=== PATIENT | female | born 2005 | race Caucasian/White ===

== ENCOUNTER 2025-03-02 06:36 | Outpatient (REF) | payer OTHER, SELFPAY ==
--- NOTE | ~2025-03-02 | US_ITS ---
EXAMINATION: US PELVIS CLINICAL INFORMATION: PELVIC PAIN X 8 MONTHS, PT HAS IUD. COMPARISON: None available. TECHNIQUE: Ultrasound of the pelvis is performed using transabdominal evaluation only, along with Doppler. Patient declined transvaginal examination today. FINDINGS: Uterus: Uterus anteverted and anteflexed. Measures 8.2 x 3.6 x 4.6 cm (volume of 70.8 ml). Homogeneous echotexture of the myometrium. Endometrial echo complex measures 0.3 cm. Intrauterine device appears properly positioned within the endometrial cavity. Ovaries/adnexa: Right ovary measures 3.3 x 1.8 x 2.3 cm (volume of 6.9 ml). Left ovary measures 2.8 x 1.0 x 1.7 cm (volume of 2.5 ml). Unremarkable sonographic appearance of the ovaries. No adnexal masses seen. Pelvis: No free fluid. US/US pelvic complete IMPRESSION: No concerning sonographic findings. Intrauterine device appears properly positioned within the endometrial cavity. Electronically signed by: Cristy Nava MD 03/02/2025 10:15 AM [facility]
== END 2025-03-02 06:37 | disposition home or self-care (01) ==
LOC: HO.UMASIMG 06:36
PROVIDERS: Visit Provider Nurse Practitioner Women's Health
DX: Z30.431 Encounter for routine checking of intrauterine contraceptive device (principal); R10.20 Pelvic and perineal pain unspecified side
CPT/HCPCS: 76856